=== PATIENT | female | born 1980 | race Caucasian/White ===

== ENCOUNTER 2016-11-01 11:29 | Emergency (ER) | payer OTHER ==
[~2016-11-01] VITALS: Ht 165.1 cm; Wt 86.2 kg
--- OUTSIDE RECORDS SUMMARY | ~2016-11-01 | XMS ---
Demographics + + + | Address | [address] [place] [address] | | | [place] [address] | + + + | Preferred Language | Unknown | + + + | Marital Status | Unknown | + + + | Religion Affiliation | Unknown | + + + | Race | Unknown | + + + | Ethnic Group | Unknown | + + + Author + + + | Author | [facility] | + + + | Organization | [facility] | + + + | Address | [address] | | | [place] [address] | + + + | Phone | | + + + Care Team Providers + + + + | Care Curator Horticultural Museum Name | Role | Phone | + + + + Unavailable | Unavailable | + + + + PROBLEMS +---------+ + + +--------+ + + | Type | Condition | ICD9-CM | [id number] | Onset | Condition | SNOMED | | | | Code | Code | Dates | Status | Code | +---------+ + + +--------+ + + | Problem | Cervical | N88.2 | | | Active | 04620555 | | | stenosis | | | | | | | | (uterine | | | | | | | | cervix) | | | | | | +---------+ + + +--------+ + + | Problem | Screening | Z12.4 | | | Active | 678489785 | | | for | | | | | | | | cervical | | | | | | | | cancer | | | | | | +---------+ + + +--------+ + + | Problem | Cervical | M48.02 | | | Active | 06273998 | | | spinal | | | | | | | | stenosis | | | | | | +---------+ + + +--------+ + + | Problem | Breast | N64.4 | | | Active | 59241161 | | | pain, left | | | | | | +---------+ + + +--------+ + + | Problem | Abdominal | 789.03 | | | Active | 767989836 | | | pain, | | | | | | | | right | | | | | | | | lower | | | | | | | | quadrant | | | | | | +---------+ + + +--------+ + + | Problem | Pelvic | 625.9 | | | Active | 76448154 | | | Pain | | | | | | +---------+ + + +--------+ + + | Problem | CERVICAL | 723.0 | | | Active | 96862255 | | | SPINAL | | | | | | | | STENOSIS | | | | | | +---------+ + + +--------+ + + | Problem | Routine | V72.31 | | | Active | [id number] | | | Media Reporter exam | | | | | 98[address] | | | with or | | | | | | | | without | | | | | | | | PAP | | | | | | +---------+ + + +--------+ + + | Problem | Myalgia | 729.1 | | | Active | 29261702 | +---------+ + + +--------+ + + | Problem | OPIOID | 305.52 | | | Active | 520106021 | | | ABUSE-EPIS | | | | | | | | ODIC | | | | | | +---------+ + + +--------+ + + | Problem | Chest | 786.59 | | | Active | 808673514 | | | discomfort | | | | | | +---------+ + + +--------+ + + | Problem | Rib pain | 786.50 | | | Active | 053865644 | +---------+ + + +--------+ + + | Problem | COPD | 496 | | | Active | 60276233 | | | (chronic | | | | | | | | obstructiv | | | | | | | | e | | | | | | | | pulmonary | | | | | | | | disease) | | | | | | +---------+ + + +--------+ + + | Problem | Chronic | | G89.4 | | Active | 888835879 | | | pain | | | | | | | | syndrome | | | | | | +---------+ + + +--------+ + + | Problem | Tobacco | F17.200 | | | Active | 421844577 | | | use | | | | | | | | disorder | | | | | | +---------+ + + +--------+ + + | Problem | Abscess of | 682.3 | | | Active | 16291581 | | | forearm | | | | | | +---------+ + + +--------+ + + | Problem | CLSC | 346.00 | | | Active | 8221770 | | | MIGRNE WO | | | | | | | | NTRC MGRN | | | | | | +---------+ + + +--------+ + + | Problem | Abdominal | 789.00 | | | Active | 80547967 | | | Pain | | | | | | +---------+ + + +--------+ + + | Problem | FB eye | T15.90XA | | | Active | | +---------+ + + +--------+ + + | Problem | Allergy, | 995.3 | | | Active | 884309454 | | | General | | | | | | +---------+ + + +--------+ + + | Problem | Screening | Z13.89 | | | Active | 475856264 | | | for | | | | | | | | alcoholism | | | | | | +---------+ + + +--------+ + + | Problem | ROM (right | H66.91 | | | Active | 65896021 | | | otitis | | | [...] | 722.0 | | | Active | 35736556 | | | DISC | | | [...] | 070.70 | | | Active | 11082415 | | | C without | | [...] | 782.0 | | | Active | 557504324 | | | e of skin | | | | | | | | sensation | | | | | | +---------+ + + +--------+ + + | Problem | Arm pain | 729.5 | | | Active | 09369627 | +---------+ + + +--------+ + + | Problem | JOINT | 719.41 | | | Active | 487643183 | | | PAIN-SHLDE | | | | | | | | R | | | | | | +---------+ + + +--------+ + + | Problem | BIPOLAR | 296.80 | | | Active | 78437431 | | | DISORDER | | | | | | | | NOS | | | | | | +---------+ + + +--------+ + + ALLERGIES + + + + +--------+ | Substance | Reaction | Event Type | Date | Status | + + + + +--------+ | Codeine | itchy | Drug Allergy | June, | Active | + + + + +--------+ | Amoxicillin | stomach upset | Drug Allergy | June, | Active | + + + + +--------+ | Tramadol HCl | seizures | Drug Allergy | June, | Active | + + + + +--------+ | Morphine | nausea | Drug Allergy | June, | Active | | Sulfate | | | | | + + + + +--------+ | Inapsine | vomiting | Drug Allergy | June, | Active | + + + + +--------+ | Darvocet A500 | stomach upset | Drug Allergy | June, | Active | + + + + +--------+ SOCIAL HISTORY No smoking Hx information available PLAN OF CARE + +---------+ | Activity | Details | + +---------+ +---+ | | +---+ + + + | Follow Up | 4 Weeks Reason:null | + + + VITAL SIGNS + + + + | Height | 65 in | 2016-07-16 | + + + + | Weight | 199 lbs | 2016-07-16 | + + + + | BMI | 33.11 kg/m2 | 2016-07-16 | + + + + | Temperature | 98.0 degrees Fahrenheit | 2016-07-16 | + + + + | Heart Rate | 85 /min | 2016-07-16 | + + + + | Blood pressure systolic | 126 mm Hg | 2016-07-16 | + + + + | Blood pressure diastolic | 77 mm Hg | 2016-07-16 | + + + + MEDICATIONS + + + + + + + +--------+ | Medicati | Instruct | Dosage | Frequenc | Start | End Date | Duration | Status | | on | ions | | y | Date | | | | + + + + + + + +--------+ | Wellbutr | Orally | 1 tablet | 24h | 31 June, | | 30 | Active | | in 75 mg | Once a | | | 2017 | | day(s) | | | | day | | [...] Transder | 1 patch | 24h | 31 June, | 30 Lior, | 30 | Active | | Nicotine | mal Once | | | 2017 | 2016 | day(s) | | | 21 | a day | | | | | | | | MG/24HR | | | | | | | | + + + + + + + +--------+ | RA | Mouth/Th | 1 | 6h | 31 May, | 30 Theo, | 15 | Active | | Nicotine | roat qid | lozenge | | 2016 | 2016 | day(s) | | | | | as | | | | | | | Polacril | | needed | | | | | | | ex 4 mg | | | | | | | | + + + + + + + +--------+ RESULTS No Results PROCEDURES + + + + + | Procedure | Date Ordered | Related Diagnosis | Body Site | + + + + + | Est Level IV | July 16, 2016 | | | | Extended | | | | + + + + + | DSCHRG MED/CURRENT | July 16, 2016 | | | | MED MERGE | | | | + + + + + IMMUNIZATIONS No Known Immunizations"
--- OUTSIDE RECORDS SUMMARY | ~2016-11-01 | XMS ---
Demographics + + + | Address | [address] [place] [address] | | | [place] [address] | + + + | Preferred Language | Unknown | + + + | Marital Status | Unknown | + + + | Caodaism Affiliation | Unknown | + + + | Race | Unknown | + + + | Ethnic Group | Unknown | + + + Author + + + | Author | [facility] | + + + | Organization | [facility] | + + + | Address | [address] | | | [place] [address] | + + + | Phone | | + + + Care Team Providers + + + + | Care Cream Separator Operator Name | Role | Phone | + + + + Unavailable | Unavailable | + + + + PROBLEMS +---------+ + + +--------+ + + | Type | Condition | ICD9-CM | [id number] | Onset | Condition | SNOMED | | | | Code | Code | Dates | Status | Code | +---------+ + + +--------+ + + | Problem | Cervical | N88.2 | | | Active | 17099817 | | | stenosis | | | | | | | | (uterine | | | | | | | | cervix) | | | | | | +---------+ + + +--------+ + + | Problem | Screening | Z12.4 | | | Active | 286530144 | | | for | | | | | | | | cervical | | | | | | | | cancer | | | | | | +---------+ + + +--------+ + + | Problem | Cervical | M48.02 | | | Active | 61271112 | | | spinal | | | | | | | | stenosis | | | | | | +---------+ + + +--------+ + + | Problem | Breast | N64.4 | | | Active | 97087054 | | | pain, left | | | | | | +---------+ + + +--------+ + + | Problem | Abdominal | 789.03 | | | Active | 784113954 | | | pain, | | | | | | | | right | | | | | | | | lower | | | | | | | | quadrant | | | | | | +---------+ + + +--------+ + + | Problem | Pelvic | 625.9 | | | Active | 65126775 | | | Pain | | | | | | +---------+ + + +--------+ + + | Problem | CERVICAL | 723.0 | | | Active | 49269571 | | | SPINAL | | | | | | | | STENOSIS | | | | | | +---------+ + + +--------+ + + | Problem | Routine | V72.31 | | | Active | 5557777858 | | | Valver exam | | | | | 87908 | | | with or | | | | | | | | without | | | | | | | | PAP | | | | | | +---------+ + + +--------+ + + | Problem | Myalgia | 729.1 | | | Active | 84997746 | +---------+ + + +--------+ + + | Problem | OPIOID | 305.52 | | | Active | 009953778 | | | ABUSE-EPIS | | | | | | | | ODIC | | | | | | +---------+ + + +--------+ + + | Problem | Chest | 786.59 | | | Active | 146015778 | | | discomfort | | | | | | +---------+ + + +--------+ + + | Problem | Rib pain | 786.50 | | | Active | 175733343 | +---------+ + + +--------+ + + | Problem | COPD | 496 | | | Active | 82710201 | | | (chronic | | | | | | | | obstructiv | | | | | | | | e | | | | | | | | pulmonary | | | | | | | | disease) | | | | | | +---------+ + + +--------+ + + | Problem | Chronic | | G89.4 | | Active | 980406013 | | | pain | | | | | | | | syndrome | | | | | | +---------+ + + +--------+ + + | Problem | Tobacco | F17.200 | | | Active | 628946483 | | | use | | | | | | | | disorder | | | | | | +---------+ + + +--------+ + + | Problem | Abscess of | 682.3 | | | Active | 38469075 | | | forearm | | | | | | +---------+ + + +--------+ + + | Problem | CLSC | 346.00 | | | Active | 5436103 | | | MIGRNE WO | | | | | | | | NTRC MGRN | | | | | | +---------+ + + +--------+ + + | Problem | Abdominal | 789.00 | | | Active | 54100166 | | | Pain | | | | | | +---------+ + + +--------+ + + | Problem | FB eye | T15.90XA | | | Active | | +---------+ + + +--------+ + + | Problem | Allergy, | 995.3 | | | Active | 255932785 | | | General | | | | | | +---------+ + + +--------+ + + | Problem | Screening | Z13.89 | | | Active | 709156320 | | | for | | | | | | | | alcoholism | | | | | | +---------+ + + +--------+ + + | Problem | ROM (right | H66.91 | | | Active | 78265793 | | | otitis | | | [...] | 722.0 | | | Active | 24947214 | | | DISC | | | [...] | 070.70 | | | Active | 76491224 | | | C without | | [...] | 782.0 | | | Active | 844778049 | | | e of skin | | | | | | | | sensation | | | | | | +---------+ + + +--------+ + + | Problem | Arm pain | 729.5 | | | Active | 44902126 | +---------+ + + +--------+ + + | Problem | JOINT | 719.41 | | | Active | 368977027 | | | PAIN-SHLDE | | | | | | | | R | | | | | | +---------+ + + +--------+ + + | Problem | BIPOLAR | 296.80 | | | Active | 40819920 | | | DISORDER | | | | | | | | NOS | | | | | | +---------+ + + +--------+ + + ALLERGIES Unknown Allergies SOCIAL HISTORY No smoking Hx information available PLAN OF CARE VITAL SIGNS MEDICATIONS Unknown Medications RESULTS No Results PROCEDURES No Known procedures IMMUNIZATIONS No Known Immunizations"
--- OUTSIDE RECORDS SUMMARY | ~2016-11-01 | XMS ---
Demographics + + + | Address | [address] [place] [address] | | | [place] [address] | + + + | Preferred Language | Unknown | + + + | Marital Status | Unknown | + + + | Holiness Affiliation | Unknown | + + + | Race | Unknown | + + + | Ethnic Group | Unknown | + + + Author + + + | Author | [facility] | + + + | Organization | [facility] | + + + | Address | [address] | | | [place] [address] | + + + | Phone | | + + + Care Team Providers + + + + | Care Inspector Multifocal Lens Name | Role | Phone | + + + + Unavailable | Unavailable | + + + + PROBLEMS +---------+ + + +--------+ + + | Type | Condition | ICD9-CM | [id number] | Onset | Condition | SNOMED | | | | Code | Code | Dates | Status | Code | +---------+ + + +--------+ + + | Problem | Cervical | N88.2 | | | Active | 42795159 | | | stenosis | | | | | | | | (uterine | | | | | | | | cervix) | | | | | | +---------+ + + +--------+ + + | Problem | Screening | Z12.4 | | | Active | 878388842 | | | for | | | | | | | | cervical | | | | | | | | cancer | | | | | | +---------+ + + +--------+ + + | Problem | Cervical | M48.02 | | | Active | 31616114 | | | spinal | | | | | | | | stenosis | | | | | | +---------+ + + +--------+ + + | Problem | Breast | N64.4 | | | Active | 32755352 | | | pain, left | | | | | | +---------+ + + +--------+ + + | Problem | Abdominal | 789.03 | | | Active | 069218584 | | | pain, | | | | | | | | right | | | | | | | | lower | | | | | | | | quadrant | | | | | | +---------+ + + +--------+ + + | Problem | Pelvic | 625.9 | | | Active | 65026233 | | | Pain | | | | | | +---------+ + + +--------+ + + | Problem | CERVICAL | 723.0 | | | Active | 99750315 | | | SPINAL | | | | | | | | STENOSIS | | | | | | +---------+ + + +--------+ + + | Problem | Routine | V72.31 | | | Active | 8570793122 | | | Pcts exam | | | | | 86719 | | | with or | | | | | | | | without | | | | | | | | PAP | | | | | | +---------+ + + +--------+ + + | Problem | Myalgia | 729.1 | | | Active | 46223405 | +---------+ + + +--------+ + + | Problem | OPIOID | 305.52 | | | Active | 640075730 | | | ABUSE-EPIS | | | | | | | | ODIC | | | | | | +---------+ + + +--------+ + + | Problem | Chest | 786.59 | | | Active | 476110393 | | | discomfort | | | | | | +---------+ + + +--------+ + + | Problem | Rib pain | 786.50 | | | Active | 013635363 | +---------+ + + +--------+ + + | Problem | COPD | 496 | | | Active | 62558302 | | | (chronic | | | | | | | | obstructiv | | | | | | | | e | | | | | | | | pulmonary | | | | | | | | disease) | | | | | | +---------+ + + +--------+ + + | Problem | Chronic | | G89.4 | | Active | 336584667 | | | pain | | | | | | | | syndrome | | | | | | +---------+ + + +--------+ + + | Problem | Tobacco | F17.200 | | | Active | 017331434 | | | use | | | | | | | | disorder | | | | | | +---------+ + + +--------+ + + | Problem | Abscess of | 682.3 | | | Active | 30503493 | | | forearm | | | | | | +---------+ + + +--------+ + + | Problem | CLSC | 346.00 | | | Active | 4626273 | | | MIGRNE WO | | | | | | | | NTRC MGRN | | | | | | +---------+ + + +--------+ + + | Problem | Abdominal | 789.00 | | | Active | 52131130 | | | Pain | | | | | | +---------+ + + +--------+ + + | Problem | FB eye | T15.90XA | | | Active | | +---------+ + + +--------+ + + | Problem | Allergy, | 995.3 | | | Active | 065251707 | | | General | | | | | | +---------+ + + +--------+ + + | Problem | Screening | Z13.89 | | | Active | 594124130 | | | for | | | | | | | | alcoholism | | | | | | +---------+ + + +--------+ + + | Problem | ROM (right | H66.91 | | | Active | 37282953 | | | otitis | | | [...] | 722.0 | | | Active | 90303843 | | | DISC | | | [...] | 070.70 | | | Active | 16059615 | | | C without | | [...] | 782.0 | | | Active | 090237973 | | | e of skin | | | | | | | | sensation | | | | | | +---------+ + + +--------+ + + | Problem | Arm pain | 729.5 | | | Active | 50662083 | +---------+ + + +--------+ + + | Problem | JOINT | 719.41 | | | Active | 667948777 | | | PAIN-SHLDE | | | | | | | | R | | | | | | +---------+ + + +--------+ + + | Problem | BIPOLAR | 296.80 | | | Active | 34541369 | | | DISORDER | | | | | | | | NOS | | | | | | +---------+ + + +--------+ + + ALLERGIES Unknown Allergies SOCIAL HISTORY No smoking Hx information available PLAN OF CARE + +---------+ | Activity | Details | + +---------+ +---+ | | +---+ + + + | Pending Test | Mammogram: Diagnostic (Bilateral) | + + + VITAL SIGNS MEDICATIONS Unknown Medications RESULTS No Results PROCEDURES No Known procedures IMMUNIZATIONS No Known Immunizations"
[~2016-11-01 11:29] MED LIST: ABILIFY10 MG PO; ACETAMINOPHEN-1 EAC1 PO; AZITHROMYCIN500 MG PO; BACTRIM DS TAB1 EACH PO; BLACK COHOSH40 M1 PO; CEPHALEXIN500 MG; CEPHALEXIN500 MG PO; CIPRO500 MG PO; CLONIDINE HCL0.1 MG PO; CORTISPORIN EAR10 ML AD; DOXYCYCLINE HY100 MG PO; ESTRADIOL1 MG PO; FLEXERIL10 MG PO; FLONASE2 SPRAY; FLUOXETINE HCL20 MG PO; GABAPENTIN100 MG PO; GABAPENTIN300 MG PO; HYDROCODON-ACE1 EA10; HYDROCODON-ACE1 EA11 PO; HYDROCODON-ACE1 EAC8 PO; KEFLEX500 MG PO; MEGA RED KRILL OIL; MSM500 MG PO; NAPROSYN500 MG PO; NAPROXEN500 MG PO; NORCO 5-325 TA1 EACH PO; NORCO 7.5-3251 EACH PO; SAPHRIS5 MG; SEPTRA DS TABL1 EACH PO; ST. JOHN'S WOR300 MG PO; SUDAFED30 MG; THERALITH XR T1 EACH PO; TOPAMAX100 MG; TUMERIC; VICODIN 5-3001 EACH PO; [UNRECOGNIZED DRUG - OTHER]
== END 2016-11-01 11:47 | disposition home or self-care (01) ==
LOC: ED 11:29
DX: Z00.8 Encounter for other general examination (principal)

== ENCOUNTER 2017-01-23 08:13 | Emergency (ER) | payer OTHER ==
[~2017-01-23] VITALS: Ht 165.1 cm; Wt 83.5 kg
[2017-01-23] MEDS ORDERED: SUBOXONE 8 MG-1 EAC1 SL (08:22)
[2017-01-23] MEDS ORDERED: CYMBALTA20 MG PO (08:23)
--- OUTSIDE RECORDS SUMMARY | 2017-01-23 08:57 | XMS ---
Demographics + + + | Address | [address] [place] [address] | | | [place] [address] | + + + | Preferred Language | Unknown | + + + | Marital Status | Unknown | + + + | Presybeterian Affiliation | Unknown | + + + | Race | Unknown | + + + | Ethnic Group | Unknown | + + + Author + + + | Author | [facility] | + + + | Organization | [facility] | + + + | Address | [address] | | | [place] [address] | + + + | Phone | | + + + Care Team Providers + + + + | Care Surgical Technician Name | Role | Phone | + + + + Unavailable | Unavailable | + + + + PROBLEMS +---------+ + + +--------+ + + | Type | Condition | ICD9-CM | [id number] | Onset | Condition | SNOMED | | | | Code | Code | Dates | Status | Code | +---------+ + + +--------+ + + | Problem | Cervical | N88.2 | | | Active | 98893953 | | | stenosis | | | | | | | | (uterine | | | | | | | | cervix) | | | | | | +---------+ + + +--------+ + + | Problem | Screening | Z12.4 | | | Active | 071968018 | | | for | | | | | | | | cervical | | | | | | | | cancer | | | | | | +---------+ + + +--------+ + + | Problem | Cervical | M48.02 | | | Active | 68311378 | | | spinal | | | | | | | | stenosis | | | | | | +---------+ + + +--------+ + + | Problem | Breast | N64.4 | | | Active | 95668765 | | | pain, left | | | | | | +---------+ + + +--------+ + + | Problem | Abdominal | 789.03 | | | Active | 732070814 | | | pain, | | | | | | | | right | | | | | | | | lower | | | | | | | | quadrant | | | | | | +---------+ + + +--------+ + + | Problem | Pelvic | 625.9 | | | Active | 56190393 | | | Pain | | | | | | +---------+ + + +--------+ + + | Problem | CERVICAL | 723.0 | | | Active | 65616347 | | | SPINAL | | | | | | | | STENOSIS | | | | | | +---------+ + + +--------+ + + | Problem | Routine | V72.31 | | | Active | 5554867788 | | | Electric Truck Operator exam | | | | | 74979 | | | with or | | | | | | | | without | | | | | | | | PAP | | | | | | +---------+ + + +--------+ + + | Problem | Myalgia | 729.1 | | | Active | 01579460 | +---------+ + + +--------+ + + | Problem | OPIOID | 305.52 | | | Active | 452979004 | | | ABUSE-EPIS | | | | | | | | ODIC | | | | | | +---------+ + + +--------+ + + | Problem | Chest | 786.59 | | | Active | 930371626 | | | discomfort | | | | | | +---------+ + + +--------+ + + | Problem | Rib pain | 786.50 | | | Active | 458656179 | +---------+ + + +--------+ + + | Problem | COPD | 496 | | | Active | 82623861 | | | (chronic | | | | | | | | obstructiv | | | | | | | | e | | | | | | | | pulmonary | | | | | | | | disease) | | | | | | +---------+ + + +--------+ + + | Problem | Chronic | | G89.4 | | Active | 790198675 | | | pain | | | | | | | | syndrome | | | | | | +---------+ + + +--------+ + + | Problem | Tobacco | F17.200 | | | Active | 803505305 | | | use | | | | | | | | disorder | | | | | | +---------+ + + +--------+ + + | Problem | Abscess of | 682.3 | | | Active | 34077164 | | | forearm | | | | | | +---------+ + + +--------+ + + | Problem | CLSC | 346.00 | | | Active | 2076724 | | | MIGRNE WO | | | | | | | | NTRC MGRN | | | | | | +---------+ + + +--------+ + + | Problem | Abdominal | 789.00 | | | Active | 70731522 | | | Pain | | | | | | +---------+ + + +--------+ + + | Problem | FB eye | T15.90XA | | | Active | | +---------+ + + +--------+ + + | Problem | Allergy, | 995.3 | | | Active | 740004535 | | | General | | | | | | +---------+ + + +--------+ + + | Problem | Screening | Z13.89 | | | Active | 209753399 | | | for | | | | | | | | alcoholism | | | | | | +---------+ + + +--------+ + + | Problem | ROM (right | H66.91 | | | Active | 90136605 | | | otitis | | | | | | | | media) | | | | | | +---------+ + + +--------+ + + | Problem | Drug | 305.91 | | | Active | | | | abuse, | | | | | | | | other, | | | | | | | | mixed or | | | | | | | | unspecifie | | | | | | | | d, | | | | | | | | continuous | | | | | | +---------+ + + +--------+ + + | Problem | CERVICAL | 722.0 | | | Active | 14219661 | | | DISC | | | | | | | | DISPLACMNT | | | | | | +---------+ + + +--------+ + + | Problem | JOINT | V43.61 | | | Active | | | | REPLACED | | | | | | | | SHOULDER | | | | | | +---------+ + + +--------+ + + | Problem | Hepatitis | 070.70 | | | Active | 48796471 | | | C without | | | | | | | | hepatic | | | | | | | | coma, not | | | | | | | | otherwise | | | | | | | | specified | | | | | | +---------+ + + +--------+ + + | Problem | Disturbanc | 782.0 | | | Active | 494813562 | | | e of skin | | | | | | | | sensation | | | | | | +---------+ + + +--------+ + + | Problem | Arm pain | 729.5 | | | Active | 17572313 | +---------+ + + +--------+ + + | Problem | JOINT | 719.41 | | | Active | 650081627 | | | PAIN-SHLDE | | | | | | | | R | | | | | | +---------+ + + +--------+ + + | Problem | BIPOLAR | 296.80 | | | Active | 81780293 | | | DISORDER | | | | | | | | NOS | | | | | | +---------+ + + +--------+ + + ALLERGIES No Information SOCIAL HISTORY Never Assessed PLAN OF CARE VITAL SIGNS MEDICATIONS Unknown Medications RESULTS No Results PROCEDURES No Known procedures IMMUNIZATIONS No Known Immunizations MEDICAL (GENERAL) HISTORY + + + + | Type | Description | Date | + + + + | Medical History | Endometriosis | | + + + + | Medical History | Bipolar | | + + + + | Medical History | epilepsy - stopped meds | | | | last month, was on LAMICTAL | | | | and was changed to | | | | Neurontin. | | + + + + | Medical History | drug addiction (narcotics) | | + + + + | Medical History | HEP C: last test with | | | | Ilda she did not have | | | | this. Never treated. | | + + + + | Medical History | Crohns disease | | + + + + | Medical History | patient history for chronic | | | | management chronic pain is | | | | as follows she is a long | | | | history of orthopedic and | | | | neurosurgical problems | | | | related to cervical spine | | | | stenosis she took tramadol | | | | and then developed a | | | | seizure and he ended up | | | | with a left total shoulder | | | | replacement done some | | | | problems in the past with | | | | opiate abuse and she has | | | | been on ongoing low doses | | | | of Maben 5 325 q.6 to 8 | | | | hours we're working with a | | | | pain management counseling | | | | in reducing her narcotic | | | | slowly his shoulder surgery | | | | he has been only | | | | reasonably successful and | | | | she has a significant | | | | amount of pain in the | | | | shoulder there is some | | | | neuropathy related to the | | | | cervical stenosis but not | | | | major and we're going to | | | | work at continuing to | | | | reduce the narcotics over | | | | time. Discussion with | | | | Ilda on 04/18/15, we will | | | | continue trying to taper | | | | her off the opiate | | | | analgesics over a | | | | three-month period. We did | | | | review the results of the | | | | MRI done on 04/17/15 (MCT) | | + + + + | Medical History | 04/17/15: MRI of | | | | spine/cervical spine, | | | | impression: No significant | | | | change in the mild right | | | | C4-C5 and left C5-C6 neural | | | | foraminal narrowing. | | + + + + | Medical History | Zafar 1993 | | + + + + | Medical History | Appendectomy: Elen White | | + + + + | Medical History | Radhasariel 2008 ADELINA GOMEZO | | + + + + | Surgical History | laparoscopy x6 | [id number] | + + + + | Surgical History | gall bladder | 2005 | + + + + | Surgical History | appendectomy | 1991 | + + + + | Surgical History | Abdominal hysterectomy, | 2008 | | | with BSO | | + + + + | Surgical History | shoulder surgery x2 | [phone] | + + + + | Surgical History | shoulder replacement | 2010 | + + + + | Surgical History | left breast lump removed | 2012 | | | (abscess) | | + + + + | Surgical History | cyst removed from right ear | 2016 | + + + + | Hospitalization History | surgery | | + + + + | Hospitalization History | childbirth x 2 | | + + + +"
--- OUTSIDE RECORDS SUMMARY | 2017-01-23 08:57 | XMS ---
Demographics + + + | Address | [address] [place] [address] | | | [place] [address] | + + + | Preferred Language | Unknown | + + + | Marital Status | Unknown | + + + | Voodoo Affiliation | Unknown | + + + | Race | Unknown | + + + | Ethnic Group | Unknown | + + + Author + + + | Author | [facility] | + + + | Organization | [facility] | + + + | Address | [address] | | | [place] [address] | + + + | Phone | | + + + Care Team Providers + + + + | Care Foam Cutting Supervisor Name | Role | Phone | + + + + Unavailable | Unavailable | + + + + PROBLEMS +---------+ + + +--------+ + + | Type | Condition | ICD9-CM | [id number] | Onset | Condition | SNOMED | | | | Code | Code | Dates | Status | Code | +---------+ + + +--------+ + + | Problem | Cervical | N88.2 | | | Active | [id number] | | | stenosis | | | | | | | | (uterine | | | | | | | | cervix) | | | | | | +---------+ + + +--------+ + + | Problem | Screening | Z12.4 | | | Active | 281319984 | | | for | | | | | | | | cervical | | | | | | | | cancer | | | | | | +---------+ + + +--------+ + + | Problem | Cervical | M48.02 | | | Active | 96212997 | | | spinal | | | | | | | | stenosis | | | | | | +---------+ + + +--------+ + + | Problem | Breast | N64.4 | | | Active | 40390994 | | | pain, left | | | | | | +---------+ + + +--------+ + + | Problem | Abdominal | 789.03 | | | Active | 886148055 | | | pain, | | | | | | | | right | | | | | | | | lower | | | | | | | | quadrant | | | | | | +---------+ + + +--------+ + + | Problem | Pelvic | 625.9 | | | Active | 34305376 | | | Pain | | | | | | +---------+ + + +--------+ + + | Problem | CERVICAL | 723.0 | | | Active | 26698680 | | | SPINAL | | | | | | | | STENOSIS | | | | | | +---------+ + + +--------+ + + | Problem | Routine | V72.31 | | | Active | 7964694390 | | | 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 | | | | | 01406 | | | with or | | | | | | | | without | | | | | | | | PAP | | | | | | +---------+ + + +--------+ + + | Problem | Myalgia | 729.1 | | | Active | 64671130 | +---------+ + + +--------+ + + | Problem | OPIOID | 305.52 | | | Active | 192287705 | | | ABUSE-EPIS | | | | | | | | ODIC | | | | | | +---------+ + + +--------+ + + | Problem | Chest | 786.59 | | | Active | 974817063 | | | discomfort | | | | | | +---------+ + + +--------+ + + | Problem | Rib pain | 786.50 | | | Active | 718526740 | +---------+ + + +--------+ + + | Problem | COPD | 496 | | | Active | 03187424 | | | (chronic | | | | | | | | obstructiv | | | | | | | | e | | | | | | | | pulmonary | | | | | | | | disease) | | | | | | +---------+ + + +--------+ + + | Problem | Chronic | | G89.4 | | Active | 320052131 | | | pain | | | | | | | | syndrome | | | | | | +---------+ + + +--------+ + + | Problem | Tobacco | F17.200 | | | Active | 963590154 | | | use | | | | | | | | disorder | | | | | | +---------+ + + +--------+ + + | Problem | Abscess of | 682.3 | | | Active | 77408587 | | | forearm | | | | | | +---------+ + + +--------+ + + | Problem | CLSC | 346.00 | | | Active | 1479275 | | | MIGRNE WO | | | | | | | | NTRC MGRN | | | | | | +---------+ + + +--------+ + + | Problem | Abdominal | 789.00 | | | Active | 90409835 | | | Pain | | | | | | +---------+ + + +--------+ + + | Problem | FB eye | T15.90XA | | | Active | | +---------+ + + +--------+ + + | Problem | Allergy, | 995.3 | | | Active | 063203114 | | | General | | | | | | +---------+ + + +--------+ + + | Problem | Screening | Z13.89 | | | Active | 042158070 | | | for | | | | | | | | alcoholism | | | | | | +---------+ + + +--------+ + + | Problem | ROM (right | H66.91 | | | Active | 84620307 | | | otitis | | | [...] | 722.0 | | | Active | 00256340 | | | DISC | | | [...] | 070.70 | | | Active | 86439745 | | | C without | | [...] | 782.0 | | | Active | 580519125 | | | e of skin | | | | | | | | sensation | | | | | | +---------+ + + +--------+ + + | Problem | Arm pain | 729.5 | | | Active | 61083338 | +---------+ + + +--------+ + + | Problem | JOINT | 719.41 | | | Active | 995022288 | | | PAIN-SHLDE | | | | | | | | R | | | | | | +---------+ + + +--------+ + + | Problem | BIPOLAR | 296.80 | | | Active | 70012820 | | | DISORDER | | | [...] low doses | | | | of [place] 5 325 q.6 to 8 | | [...] | Surgical History | laparoscopy x6 | 4141-9258 | + + + + | Surgical History | gall bladder | 2005 | + + + + | Surgical History | appendectomy | 1991 | + + + + | Surgical History | Abdominal hysterectomy, | 2008 | | | with BSO | | + + + + | Surgical History | shoulder surgery x2 | 8149-2691 | + + + + | Surgical [...]
--- OUTSIDE RECORDS SUMMARY | 2017-01-23 09:23 | XMS ---
Demographics + + + | Address | [address] [place] [address] | | | [place] [address] | + + + | Preferred Language | Unknown | + + + | Marital Status | Unknown | + + + | Muslim Affiliation | Unknown | + + + | Race | Unknown | + + + | Ethnic Group | Unknown | + + + Author + + + | Author | [facility] | + + + | Organization | [facility] | + + + | Address | [address] | | | [place] [address] | + + + | Phone | | + + + Care Team Providers + + + + | Care Practice Support Specialist Name | Role | Phone | + + + + Unavailable | Unavailable | + + + + PROBLEMS +---------+ + + +--------+ + + | Type | Condition | ICD9-CM | [id number] | Onset | Condition | SNOMED | | | | Code | Code | Dates | Status | Code | +---------+ + + +--------+ + + | Problem | Cervical | N88.2 | | | Active | 07096844 | | | stenosis | | | | | | | | (uterine | | | | | | | | cervix) | | | | | | +---------+ + + +--------+ + + | Problem | Screening | Z12.4 | | | Active | 308235254 | | | for | | | | | | | | cervical | | | | | | | | cancer | | | | | | +---------+ + + +--------+ + + | Problem | Cervical | M48.02 | | | Active | 66666132 | | | spinal | | | | | | | | stenosis | | | | | | +---------+ + + +--------+ + + | Problem | Breast | N64.4 | | | Active | 14941168 | | | pain, left | | | | | | +---------+ + + +--------+ + + | Problem | Abdominal | 789.03 | | | Active | 195588946 | | | pain, | | | | | | | | right | | | | | | | | lower | | | | | | | | quadrant | | | | | | +---------+ + + +--------+ + + | Problem | Pelvic | 625.9 | | | Active | 92526984 | | | Pain | | | | | | +---------+ + + +--------+ + + | Problem | CERVICAL | 723.0 | | | Active | 35338215 | | | SPINAL | | | | | | | | STENOSIS | | | | | | +---------+ + + +--------+ + + | Problem | Routine | V72.31 | | | Active | 2928103962 | | | 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 | | | | | 09947 | | | with or | | | | | | | | without | | | | | | | | PAP | | | | | | +---------+ + + +--------+ + + | Problem | Myalgia | 729.1 | | | Active | 69761856 | +---------+ + + +--------+ + + | Problem | OPIOID | 305.52 | | | Active | 757506556 | | | ABUSE-EPIS | | | | | | | | ODIC | | | | | | +---------+ + + +--------+ + + | Problem | Chest | 786.59 | | | Active | 177232558 | | | discomfort | | | | | | +---------+ + + +--------+ + + | Problem | Rib pain | 786.50 | | | Active | 368883574 | +---------+ + + +--------+ + + | Problem | COPD | 496 | | | Active | 63865008 | | | (chronic | | | | | | | | obstructiv | | | | | | | | e | | | | | | | | pulmonary | | | | | | | | disease) | | | | | | +---------+ + + +--------+ + + | Problem | Chronic | | G89.4 | | Active | 584910529 | | | pain | | | | | | | | syndrome | | | | | | +---------+ + + +--------+ + + | Problem | Tobacco | F17.200 | | | Active | 130834228 | | | use | | | | | | | | disorder | | | | | | +---------+ + + +--------+ + + | Problem | Abscess of | 682.3 | | | Active | 24921204 | | | forearm | | | | | | +---------+ + + +--------+ + + | Problem | CLSC | 346.00 | | | Active | 2570356 | | | MIGRNE WO | | | | | | | | NTRC MGRN | | | | | | +---------+ + + +--------+ + + | Problem | Abdominal | 789.00 | | | Active | 86292636 | | | Pain | | | | | | +---------+ + + +--------+ + + | Problem | FB eye | T15.90XA | | | Active | | +---------+ + + +--------+ + + | Problem | Allergy, | 995.3 | | | Active | 859021800 | | | General | | | | | | +---------+ + + +--------+ + + | Problem | Screening | Z13.89 | | | Active | 430234707 | | | for | | | | | | | | alcoholism | | | | | | +---------+ + + +--------+ + + | Problem | ROM (right | H66.91 | | | Active | 12789757 | | | otitis | | | [...] | 722.0 | | | Active | 09527710 | | | DISC | | | [...] | 070.70 | | | Active | 06965702 | | | C without | | [...] | 782.0 | | | Active | 436680366 | | | e of skin | | | | | | | | sensation | | | | | | +---------+ + + +--------+ + + | Problem | Arm pain | 729.5 | | | Active | 99024717 | +---------+ + + +--------+ + + | Problem | JOINT | 719.41 | | | Active | 868444058 | | | PAIN-SHLDE | | | | | | | | R | | | | | | +---------+ + + +--------+ + + | Problem | BIPOLAR | 296.80 | | | Active | 18702207 | | | DISORDER | | | | | | | | NOS | | | | | | +---------+ + + +--------+ + + ALLERGIES + + + + +--------+ | Substance | Reaction | Event Type | Date | Status | + + + + +--------+ | Codeine | itchy | Drug Allergy | Oct, | Active | + + + + +--------+ | Amoxicillin | stomach upset | Drug Allergy | Oct, | Active | + + + + +--------+ | Tramadol HCl | seizures | Drug Allergy | Oct, | Active | + + + + +--------+ | Morphine | nausea | Drug Allergy | Oct, | Active | | Sulfate | | | | | + + + + +--------+ | Inapsine | vomiting | Drug Allergy | Oct, | Active | + + + + +--------+ | Darvocet A500 | stomach upset | Drug Allergy | Oct, | Active | + + + + +--------+ SOCIAL HISTORY No smoking Hx information available PLAN OF CARE + +---------+ | Activity | Details | + +---------+ +---+ | | +---+ + + + | Follow Up | prn Reason:null | + + + VITAL SIGNS + + + + | Height | 65 in | 2016-11-01 | + + + + | Weight | 190 lbs | 2016-11-01 | + + + + | BMI | 31.61 kg/m2 | 2016-11-01 | + + + + | Temperature | 98.1 degrees Fahrenheit | 2016-11-01 | + + + + | Heart Rate | 93 /min | 2016-11-01 | + + + + | Blood pressure systolic | 120 mm Hg | 2016-11-01 | + + + + | Blood pressure diastolic | 79 mm Hg | 2016-11-01 | + + + + MEDICATIONS + + + + + + + +--------+ | Medicati | Instruct | Dosage | Frequenc | Start | End Date | Duration | Status | | on | ions | | y | Date | | | | + + + + + + + +--------+ | Tylenol | Orally | 2 | 6h | | | | Active | | 325 MG | every 6 | tablets | | | | | | | | hrs | as | | | | | | | | | needed | | | | | | + + + + + + + +--------+ | Ketorola | Intramus | 2 ml | | 16 Sep, | 16 Sep, | | Active | | c | cular | | | 2017 | 2017 | | | | Trometha | NOW | | | | | | | | mine 60 | | | | | | | | | MG/2ML | | | | | | | | + + + + + + + +--------+ | Estrace | Orally | 1 tablet | 24h | | | 30 | Active | | 1 MG | Once a | | | | | | | | | day | | | | | | | + + + + + + + +--------+ | Ibuprofe | Orally | 1 tablet | 6h | | | | Active | | n 200 MG | every 6 | as | | | | | | | | hrs | needed | | | | | | + + + + + + + +--------+ | Cymbalta | Orally | 1 | 24h | 10 Mar, | | 30 days | Active | | 30 mg | daily | capsule | | 2015 | | | | + + + + + + + +--------+ | SM | Transder | 1 patch | 24h | 14 Oct, | 13 Dec, | 30 | Active | | Nicotine | mal Once | | | 2016 | 2016 | day(s) | | | 21 | a day | | | | | | | | MG/24HR | | | | | | | | + + + + + + + +--------+ RESULTS No Results PROCEDURES + + + + + | Procedure | Date Ordered | Related Diagnosis | Body Site | + + + + + | INJ KETOROLAC | Nov 01, 2016 | | | | TROMETHAMINE 15 MG | | | | + + + + + | INJECTION | Nov 01, 2016 | | | | ADMINISTRATION | | | | + + + + + | DSCHRG MED/CURRENT | Nov 01, 2016 | | | | MED MERGE | | | | + + + + + | Est Level III | Nov 01, 2016 | | | | Intermediate | | | | + + + + + | DOC MEDS VERIFIED | Nov 01, 2016 | | | | W/PT OR RE | | | | + + + + + IMMUNIZATIONS + + + + + | Vaccine | Route | Administration Date | Status | + + + + + | Ketorolac 60mg/2ml | IM Intramuscular | Nov 01, 2016 | Administered | + + + + +"
--- OUTSIDE RECORDS SUMMARY | 2017-01-23 09:23 | XMS ---
Demographics + + + | Address | [address] [place] [address] | | | [place] [address] | + + + | Preferred Language | Unknown | + + + | Marital Status | Unknown | + + + | Faith Affiliation | Unknown | + + + | Race | Unknown | + + + | Ethnic Group | Unknown | + + + Author + + + | Author | [facility] | + + + | Organization | [facility] | + + + | Address | [address] | | | [place] [address] | + + + | Phone | | + + + Care Team Providers + + + + | Care Room Worker Name | Role | Phone | + + + + Unavailable | Unavailable | + + + + PROBLEMS +---------+ + + +--------+ + + | Type | Condition | ICD9-CM | [id number] | Onset | Condition | SNOMED | | | | Code | Code | Dates | Status | Code | +---------+ + + +--------+ + + | Problem | Cervical | N88.2 | | | Active | 31259297 | | | stenosis | | | | | | | | (uterine | | | | | | | | cervix) | | | | | | +---------+ + + +--------+ + + | Problem | Screening | Z12.4 | | | Active | 613582331 | | | for | | | | | | | | cervical | | | | | | | | cancer | | | | | | +---------+ + + +--------+ + + | Problem | Cervical | M48.02 | | | Active | 77296474 | | | spinal | | | | | | | | stenosis | | | | | | +---------+ + + +--------+ + + | Problem | Breast | N64.4 | | | Active | 94534695 | | | pain, left | | | | | | +---------+ + + +--------+ + + | Problem | Abdominal | 789.03 | | | Active | 139943110 | | | pain, | | | | | | | | right | | | | | | | | lower | | | | | | | | quadrant | | | | | | +---------+ + + +--------+ + + | Problem | Pelvic | 625.9 | | | Active | 68697889 | | | Pain | | | | | | +---------+ + + +--------+ + + | Problem | CERVICAL | 723.0 | | | Active | 99566118 | | | SPINAL | | | | | | | | STENOSIS | | | | | | +---------+ + + +--------+ + + | Problem | Routine | V72.31 | | | Active | 0451527219 | | | 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 | | | | | 280[address] | | | with or | | | | | | | | without | | | | | | | | PAP | | | | | | +---------+ + + +--------+ + + | Problem | Myalgia | 729.1 | | | Active | 37624675 | +---------+ + + +--------+ + + | Problem | OPIOID | 305.52 | | | Active | 524253556 | | | ABUSE-EPIS | | | | | | | | ODIC | | | | | | +---------+ + + +--------+ + + | Problem | Chest | 786.59 | | | Active | 988190593 | | | discomfort | | | | | | +---------+ + + +--------+ + + | Problem | Rib pain | 786.50 | | | Active | 509182039 | +---------+ + + +--------+ + + | Problem | COPD | 496 | | | Active | 08307718 | | | (chronic | | | | | | | | obstructiv | | | | | | | | e | | | | | | | | pulmonary | | | | | | | | disease) | | | | | | +---------+ + + +--------+ + + | Problem | Chronic | | G89.4 | | Active | 045264208 | | | pain | | | | | | | | syndrome | | | | | | +---------+ + + +--------+ + + | Problem | Tobacco | F17.200 | | | Active | 368170443 | | | use | | | | | | | | disorder | | | | | | +---------+ + + +--------+ + + | Problem | Abscess of | 682.3 | | | Active | 62525749 | | | forearm | | | | | | +---------+ + + +--------+ + + | Problem | CLSC | 346.00 | | | Active | 2979590 | | | MIGRNE WO | | | | | | | | NTRC MGRN | | | | | | +---------+ + + +--------+ + + | Problem | Abdominal | 789.00 | | | Active | 11382295 | | | Pain | | | | | | +---------+ + + +--------+ + + | Problem | FB eye | T15.90XA | | | Active | | +---------+ + + +--------+ + + | Problem | Allergy, | 995.3 | | | Active | 235584942 | | | General | | | | | | +---------+ + + +--------+ + + | Problem | Screening | Z13.89 | | | Active | 517617147 | | | for | | | | | | | | alcoholism | | | | | | +---------+ + + +--------+ + + | Problem | ROM (right | H66.91 | | | Active | 98616182 | | | otitis | | | [...] | 722.0 | | | Active | 87463448 | | | DISC | | | [...] | 070.70 | | | Active | 54877248 | | | C without | | [...] | 782.0 | | | Active | 611641788 | | | e of skin | | | | | | | | sensation | | | | | | +---------+ + + +--------+ + + | Problem | Arm pain | 729.5 | | | Active | 09480156 | +---------+ + + +--------+ + + | Problem | JOINT | 719.41 | | | Active | 408050919 | | | PAIN-SHLDE | | | | | | | | R | | | | | | +---------+ + + +--------+ + + | Problem | BIPOLAR | 296.80 | | | Active | 16395820 | | | DISORDER | | | [...] low doses | | | | of [place] 5 325 q.6 to 8 | | [...] + + + | Medical History | Mikel1993 | | + + + + | Medical History | Appendectomy: Elen White | | + + + + | Medical History | Radhasnmjanet 2008 ADELINA GOMEZO | | + + + + | Surgical History | laparoscopy x6 | 7870-0278 | + + + + | Surgical History | gall bladder | 2005 | + + + + | Surgical History | appendectomy | 1991 | + + + + | Surgical History | Abdominal hysterectomy, | 2008 | | | with BSO | | + + + + | Surgical History | shoulder surgery x2 | 5106-4823 | + + + + | Surgical [...]
--- OUTSIDE RECORDS SUMMARY | 2017-01-23 09:23 | XMS ---
Demographics + + + | Address | [address] [place] [address] | | | [place] [address] | + + + | Preferred Language | Unknown | + + + | Marital Status | Unknown | + + + | Christian Affiliation | Unknown | + + + | Race | Unknown | + + + | Ethnic Group | Unknown | + + + Author + + + | Author | [facility] | + + + | Organization | [facility] | + + + | Address | [address] | | | [place] [address] | + + + | Phone | | + + + Care Team Providers + + + + | Care Ship'S [place] Name | Role | Phone | + + + + Unavailable | Unavailable | + + + + PROBLEMS +---------+ + + +--------+ + + | Type | Condition | ICD9-CM | GGX61-XR | Onset | Condition | SNOMED | | | | Code | Code | Dates | Status | Code | +---------+ + + +--------+ + + | Problem | Cervical | N88.2 | | | Active | 85200730 | | | stenosis | | | | | | | | (uterine | | | | | | | | cervix) | | | | | | +---------+ + + +--------+ + + | Problem | Screening | Z12.4 | | | Active | 116219637 | | | for | | | | | | | | cervical | | | | | | | | cancer | | | | | | +---------+ + + +--------+ + + | Problem | Cervical | M48.02 | | | Active | 54200282 | | | spinal | | | | | | | | stenosis | | | | | | +---------+ + + +--------+ + + | Problem | Breast | N64.4 | | | Active | 58830432 | | | pain, left | | | | | | +---------+ + + +--------+ + + | Problem | Abdominal | 789.03 | | | Active | 412239589 | | | pain, | | | | | | | | right | | | | | | | | lower | | | | | | | | quadrant | | | | | | +---------+ + + +--------+ + + | Problem | Pelvic | 625.9 | | | Active | 58548842 | | | Pain | | | | | | +---------+ + + +--------+ + + | Problem | CERVICAL | 723.0 | | | Active | 11470908 | | | SPINAL | | | | | | | | STENOSIS | | | | | | +---------+ + + +--------+ + + | Problem | Routine | V72.31 | | | Active | 9662421855 | | | 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 | | | | | 25892 | | | with or | | | | | | | | without | | | | | | | | PAP | | | | | | +---------+ + + +--------+ + + | Problem | Myalgia | 729.1 | | | Active | 13689627 | +---------+ + + +--------+ + + | Problem | OPIOID | 305.52 | | | Active | 431618178 | | | ABUSE-EPIS | | | | | | | | ODIC | | | | | | +---------+ + + +--------+ + + | Problem | Chest | 786.59 | | | Active | 562118540 | | | discomfort | | | | | | +---------+ + + +--------+ + + | Problem | Rib pain | 786.50 | | | Active | 319264240 | +---------+ + + +--------+ + + | Problem | COPD | 496 | | | Active | 13651196 | | | (chronic | | | | | | | | obstructiv | | | | | | | | e | | | | | | | | pulmonary | | | | | | | | disease) | | | | | | +---------+ + + +--------+ + + | Problem | Chronic | | G89.4 | | Active | 039295488 | | | pain | | | | | | | | syndrome | | | | | | +---------+ + + +--------+ + + | Problem | Tobacco | F17.200 | | | Active | 623151102 | | | use | | | | | | | | disorder | | | | | | +---------+ + + +--------+ + + | Problem | Abscess of | 682.3 | | | Active | 34462290 | | | forearm | | | | | | +---------+ + + +--------+ + + | Problem | CLSC | 346.00 | | | Active | 7504233 | | | MIGRNE WO | | | | | | | | NTRC MGRN | | | | | | +---------+ + + +--------+ + + | Problem | Abdominal | 789.00 | | | Active | 87281248 | | | Pain | | | | | | +---------+ + + +--------+ + + | Problem | FB eye | T15.90XA | | | Active | | +---------+ + + +--------+ + + | Problem | Allergy, | 995.3 | | | Active | 091132632 | | | General | | | | | | +---------+ + + +--------+ + + | Problem | Screening | Z13.89 | | | Active | 416681224 | | | for | | | | | | | | alcoholism | | | | | | +---------+ + + +--------+ + + | Problem | ROM (right | H66.91 | | | Active | 55747484 | | | otitis | | | [...] | 722.0 | | | Active | 80496185 | | | DISC | | | [...] | 070.70 | | | Active | 88704334 | | | C without | | [...] | 782.0 | | | Active | 701841279 | | | e of skin | | | | | | | | sensation | | | | | | +---------+ + + +--------+ + + | Problem | Arm pain | 729.5 | | | Active | 87693506 | +---------+ + + +--------+ + + | Problem | JOINT | 719.41 | | | Active | 296053633 | | | PAIN-SHLDE | | | | | | | | R | | | | | | +---------+ + + +--------+ + + | Problem | BIPOLAR | 296.80 | | | Active | 91946171 | | | DISORDER | | | [...] low doses | | | | of [place] 5 325 q.6 to 8 | | [...] | Surgical History | laparoscopy x6 | 0696-7721 | + + + + | Surgical History | gall bladder | 2005 | + + + + | Surgical History | appendectomy | 1991 | + + + + | Surgical History | Abdominal hysterectomy, | 2008 | | | with BSO | | + + + + | Surgical History | shoulder surgery x2 | 0948-9907 | + + + + | Surgical [...]
[2017-01-24] MEDS ORDERED: METHYLPREDNISOLO4 M1 PO (12:54)
[2017-01-24] MEDS ORDERED: KETOROLAC TROME10 MG PO (12:54)
== END 2017-01-23 10:06 | disposition home or self-care (01) ==
LOC: ED 08:13
DX: F17.200 Nicotine dependence, unspecified, uncomplicated (principal); S30.0XXA Contusion of lower back and pelvis, initial encounter; Z90.49 Acquired absence of other specified parts of digestive tract; Z90.710 Acquired absence of both cervix and uterus; Z98.890 Other specified postprocedural states; Z88.5 Allergy status to narcotic agent; Z88.1 Allergy status to other antibiotic agents; Z88.8 Allergy status to other drugs, medicaments and biological substances; Z79.891 Long term (current) use of opiate analgesic; Z79.899 Other long term (current) drug therapy; W01.198A Fall on same level from slipping, tripping and stumbling with subsequent striking against other object, initial encounter
CPT/HCPCS: 72100; 81001; 99283

== ENCOUNTER 2017-01-24 11:23 | Emergency (ER) | payer OTHER ==
[~2017-01-24] VITALS: Ht 165.1 cm; Wt 83.5 kg
[~2017-01-24 11:23] MED LIST changes: +CYMBALTA20 MG PO; +SUBOXONE 8 MG-1 EAC1 SL
[2017-01-24] MEDS ORDERED: KETOROLAC TROME10 MG PO (12:54)
[2017-01-24] MEDS ORDERED: METHYLPREDNISOLO4 M1 PO (12:54)
== END 2017-01-24 13:01 | disposition home or self-care (01) ==
LOC: ED 11:23
DX: S20.211A Contusion of right front wall of thorax, initial encounter (principal); F17.200 Nicotine dependence, unspecified, uncomplicated; Z90.49 Acquired absence of other specified parts of digestive tract; Z90.710 Acquired absence of both cervix and uterus; Z88.5 Allergy status to narcotic agent; Z88.1 Allergy status to other antibiotic agents; Z88.8 Allergy status to other drugs, medicaments and biological substances; W19.XXXA Unspecified fall, initial encounter
CPT/HCPCS: 71101; 96372; 99283; J1885

== ENCOUNTER 2017-03-01 10:41 | Emergency (ER) | payer OTHER ==
[~2017-03-01] VITALS: Ht 165.1 cm; Wt 81.7 kg
--- OUTSIDE RECORDS SUMMARY | ~2017-03-01 | XMS | Clinical Summary ---
Demographics + + + | Address | [address] | | | [place] [address] | + + + | Home Phone | | + + + | Preferred Language | Unknown | + + + | Marital Status | Single | + + + | Mandaeism Affiliation | CHR | + + + | Race | White | + + + | Ethnic Group | Not or | + + + Author + + + | Author | [facility] | + + + | Organization | [facility] | + + + | Address | Unknown | + + + | Phone | Unavailable | + + + Support +------+ + + + + | Name | Relationship | Address | Phone | +------+ + + + + ECON | [address] | | [place] [address] | +------+ + + + + Care Team Providers + +------+ + | Care Delivery Driver/Customer Service Name | Role | Phone | + +------+ + | No Pcp Per Patient | PP | Unavailable | + +------+ + Source Comments ANDREIA is fully live on both [facility] and [facility] Allergies + + + + + + | Active Allergy | Reactions | Severity | Noted | Comments | | | | | Date | | + + + + + + | Amoxicillin | | | 07/24/19 | | | | | | 08 | | + + + + + + | Propoxyphene | | | 07/24/19 | | | N-Acetaminophen | | | 08 | | + + + + + + | Droperidol | | | 05/01/18 | VOMITING | | | | | 94 | | + + + + + + Current Medications + + +-------+---------+------+------+-------+ | Prescription | Sig. | Disp. | Refills | Star | End | Statu | | | | | | t | Date | s | | | | | | Date | | | + + +-------+---------+------+------+-------+ | VICODIN ORAL | None Entered | | | | | Activ | | | | | | | | e | + + +-------+---------+------+------+-------+ | | take 1-2 tablets by | 24 | 0 | 06/0 | | Activ | | hydrocodone-acetamin | oral route every 4-6 | | | 7/20 | | e | | ophen (VICODIN) | hours as needed for | | | 08 | | | | 5-500 mg Oral Tablet | pain | | | | | | + + +-------+---------+------+------+-------+ | ibuprofen 800 mg | take 1 tablet (800 | 30 | 0 | 06/0 | | Activ | | Oral Tablet | mg) by oral route 3 | | | 7/20 | | e | | | times per day with | | | 08 | | | | | food | | | | | | + + +-------+---------+------+------+-------+ Active Problems Not on file Social History + +-------+ +--------+------+ | Tobacco Use | Types | Packs/Day | Years | Date | | | | | Used | | + +-------+ +--------+------+ | Current Every Day | | | | | | Smoker | | | | | + +-------+ +--------+------+ + + +---------+ + | Alcohol Use [...] + + + | Blood Pressure | 101/69 | 07/24/2007 3:56 PM PDT | + + + + | Pulse | 63 | 07/24/2007 3:56 PM PDT | + + + + | Temperature | 37.2 C (99 F) | 07/24/2007 12:49 PM PDT | + + + + | Respiratory Rate | 16 | 07/24/2007 3:56 PM PDT | + + + + | Oxygen Saturation | 99% | 07/24/2007 3:56 PM PDT | + + + + | Inhaled Oxygen | - | - | | Concentration | | | + + + + | Weight | 85 kg (187 lb 6.3 | 07/24/2007 12:49 PM PDT | | | oz) | | + + + + | Height | - | - | + + + + | Body Mass Index | - | - | + + + + Plan of Treatment + + + + + | Health Maintenance | Due Date | Last Done | Comments | + + + + + | INFLUENZA VACCINE | | | | | (FLU SHOT) | 7 | | | + + + + + Results Not on filefrom Last 3 Months"
--- OUTSIDE RECORDS SUMMARY | ~2017-03-01 | XMS | Clinical Summary ---
Demographics + + + | Address | [address] | | | [place] [address] | + + + | Home Phone | | + + + | Preferred Language | Unknown | + + + | Marital Status | Single | + + + | Shinto Affiliation | CHR | + + + [...] [address] | | [place] [address] | +------+ + + + + Care Team Providers + +------+ + | Care Product Developer Name | Role | Phone | + +------+ + | No Pcp Per Patient | PP | Unavailable | + +------+ + Source Comments ANDREIA is fully [facility] both [facility] and [facility] Allergies + + + + + [...]
[~2017-03-01 10:41] MED LIST changes: +KETOROLAC TROME10 MG PO; +METHYLPREDNISOLO4 M1 PO
[2017-03-01] MEDS ORDERED: ONDANSETRON ODT8 MG PO (14:51)
[2017-03-01] MEDS ORDERED: PROMETHAZINE HC25 M1 PO (14:51)
== END 2017-03-01 15:25 | disposition home or self-care (01) ==
LOC: ED 10:41
DX: A04.72 Enterocolitis due to Clostridium difficile, not specified as recurrent (principal); F31.9 Bipolar disorder, unspecified; F17.200 Nicotine dependence, unspecified, uncomplicated; Z90.49 Acquired absence of other specified parts of digestive tract; Z90.710 Acquired absence of both cervix and uterus; Z98.890 Other specified postprocedural states; Z88.0 Allergy status to penicillin; Z88.5 Allergy status to narcotic agent; Z88.8 Allergy status to other drugs, medicaments and biological substances; Z79.899 Other long term (current) drug therapy
CPT/HCPCS: 36415; 80053; 81001; 83690; 85025; 96374; 96375; 99284; J1170; J2405; J7030

== ENCOUNTER 2017-08-14 13:04 | Emergency (ER) | payer OTHER ==
[~2017-08-14] VITALS: Ht 165.1 cm; Wt 81.7 kg
[~2017-08-14 13:04] MED LIST changes: +ONDANSETRON ODT8 MG PO; +PROMETHAZINE HC25 M1 PO
[2017-08-14] MEDS ORDERED: LAMICTAL200 MG PO (13:44)
== END 2017-08-14 15:07 | disposition home or self-care (01) ==
LOC: ED 13:04
DX: G43.909 Migraine, unspecified, not intractable, without status migrainosus (principal); R20.2 Paresthesia of skin; F31.9 Bipolar disorder, unspecified; F17.200 Nicotine dependence, unspecified, uncomplicated; Z88.5 Allergy status to narcotic agent; Z88.0 Allergy status to penicillin; Z88.8 Allergy status to other drugs, medicaments and biological substances; Z79.899 Other long term (current) drug therapy
CPT/HCPCS: 80053; 85025; 96374; 96375; 99283; J1885; J2550; J7030

== ENCOUNTER 2017-11-07 10:35 | Emergency (ER) | payer OTHER ==
[~2017-11-07] VITALS: Ht 165.1 cm; Wt 79.4 kg
--- OUTSIDE RECORDS SUMMARY | ~2017-11-07 | XMS | Clinical Summary ---
Demographics + + + | Address | [address] | | | [place] [address] | + + + | Home Phone | | + + + | Preferred Language | Unknown | + + + | Marital Status | | + + + | Yazidism Affiliation | 1075 | + + + | Race | Unknown | + + + | Ethnic Group | Unknown | + + + Author + + + | Author | [facility] | | | and [place] | + + + | Organization | [facility] | | | and [place] | + + + | Address | Unknown | + + + | Phone | Unavailable | + + + Support + + + + + | Name | Relationship | Address | Phone | + + + + + | Angelica Mina | ECON | [address] | | | A | | [place] | | | | | [address] | | + + + + + Care Team Providers + +------+ + | Care Leisure Studies Professor Name | Role | Phone | + +------+ + | Yfn Martinez MD | PP | | + +------+ + Allergies + + + + + + | Active Allergy | Reactions | Severity | Noted | Comments | | | | | Date | | + + + + + + | Amoxicillin | Nausea And Vomiting, | Medium | 07/22/19 | | | | Rash | | 13 | | + + + + + + | Codeine | Itching | | 01/16/20 | | | | | | 17 | | + + + + + + | Droperidol | Nausea And Vomiting, | Medium | 07/22/19 | | | | Rash | | 13 | | + + + + + + | Morphine | Itching, Other (See | Medium | 03/30/19 | Stomach pain | | | Comments) | | 14 | | + + + + + + | Propoxyphene | Other (See Comments) | | 01/16/20 | Upset Stomach | | | | | 17 | | + + + + + + | Tramadol | Other (See Comments) | High | 07/22/19 | Seizure | | | | | 13 | | + + + + + + | Uncoded | Nausea And Vomiting | Low | 07/22/19 | | | Nonscreenable | | | 13 | | | Allergen | | | | | + + + + + + Current Medications + + +-------+---------+------+------+-------+ | Prescription | Sig. | Disp. | Refills | Star | End | Statu | | | | | | t | Date | s | | | | | | Date | | | + + +-------+---------+------+------+-------+ | ibuprofen (ADVIL, | Take 200 mg by mouth | | | | | Activ | | MOTRIN) 200 mg | every 6 hours as | | | | | e | | tablet | needed for Pain. | | | | | | + + +-------+---------+------+------+-------+ | SUBOXONE 8-2 MG SL | | | 0 | 02/0 | | Activ | | film | | | | 9/20 | | e | | | | | | 18 | | | + + +-------+---------+------+------+-------+ Active Problems + + + | Problem | Noted Date | + + + | Acid reflux | | + + + | Crohn's disease of intestine | | + + + | Hx of seizure disorder | | + + + Family History + + +------+ + | Medical History | Relation | Name | Comments | + + +------+ + | High blood pressure | Brother | | | + + +------+ + | High cholesterol | Brother | | | + + +------+ + | No Known Problems | Daughter | | | + + +------+ + | Alcohol abuse | Father | | | + + +------+ + | Arthritis | Father | | | + + +------+ + | Dementia | Father | | | + + +------+ + | High blood pressure | Father | | | + + +------+ + | High cholesterol | Father | | | + + +------+ + | Other (see comment) | Father | | back or neck problems | + + +------+ + | Seizures | Father | | | + + +------+ + | Breast cancer | Maternal | | | | | Aunt | | | + + +------+ + | Seizures | Maternal | | | | | Aunt | | | + + +------+ + | No Known Problems | Maternal | | | | | Grandfath | | | | | er | | | + + +------+ + | Liver cancer | Maternal | | | | | Grandmoth | | | | | er | | | + + +------+ + | Lung cancer | Maternal | | | | | Grandmoth | | | | | er | | | + + +------+ + | Arthritis | Mother | | | + + +------+ + | Breast cancer | Mother | | | + + +------+ + | Depression | Mother | | | + + +------+ + | Psychiatric Illness | Mother | | | + + +------+ + | Alcohol abuse | Other | | | + + +------+ + | Gout | Other | | | + + +------+ + | Stroke | Other | | maternal great uncle | + + +------+ + | Heart disease | Paternal | | | | | Aunt | | | + + +------+ + | Diabetes | Paternal | | | | | Aunt | | | + + +------+ + | Diabetes | Paternal | | | | | Grandfath | | | | | er | | | + + +------+ + | Heart attack | Paternal | | | | | Grandfath | | | | | er | | | + + +------+ + | Heart disease | Paternal | | | | | Grandfath | | | | | er | | | + + +------+ + | Alzheimer's disease | Paternal | | | | | Grandmoth | | | | | er | | | + + +------+ + | Dementia | Paternal | | | | | Grandmoth | | | | | er | | | + + +------+ + | Autism | Son | | Aspergers | + + +------+ + + +------+ + + | Relation | Name | Status | Comments | + +------+ + + | Brother | | Alive | | + +------+ + + | Daughter | | Alive | | + +------+ + + | Father | | Alive | | + +------+ + + | Maternal Aunt | | | | + +------+ + + | Maternal Aunt | | | | + +------+ + + | Maternal Grandfather | | | | + +------+ + + | Maternal Grandmother | | | Lung and Liver Cancer | | | | (Age | | | | | 63) | | + +------+ + + | Mother | | Alive | | + +------+ + + | Other | | | | + +------+ + + | Paternal Aunt | | | | + +------+ + + | Paternal Aunt | | | | + +------+ + + | Paternal Grandfather | | | Heart Attack | | | | (Age | | | | | 55) | | + +------+ + + | Paternal Grandmother | | | Alzheimers | | | | (Age | | | | | 73) | | + +------+ + + | Son | | Alive | | + +------+ + + Social History + + + +--------+------+ | Tobacco Use | Types | Packs/Day | Years | Date | | | | | Used | | + + + +--------+------+ | Current Every Day | Cigarettes | 0.5 | 20 | | | Smoker | | | | | + + + +--------+------+ + +---+---+---+ | Smokeless Tobacco: | | | | | Never Used | | | | + +---+---+---+ + + +---------+ + | Alcohol Use | Drinks/We | oz/Week | Comments | | | ek | | | + + +---------+ + | No | | | | + + +---------+ + + + + | Sex Assigned at | Date Recorded | | | | + + + | Not on file | | + + + Last Filed Vital Signs + + + + | Vital Sign | Reading | Time Taken | + + + + | Blood Pressure | 101/52 | 05/20/20171613 PDT | + + + + | Pulse | 63 | 05/20/20171613 PDT | + + + + | Temperature | 37.3 C (99.1 F) | 09/21/20149 PDT | + + + + | Respiratory Rate | 16 | 05/20/20171613 PDT | + + + + | Oxygen Saturation | 99% | 09/21/20149 PDT | + + + + | Inhaled Oxygen | - | - | | Concentration | | | + + + + | Weight | 77.1 kg (170 lb) | 05/20/2017 1614 PDT | + + + + | Height | 165.1 cm (5' 5") | 05/20/20171613 PDT | + + + + | Body Mass Index | 28.29 | 05/20/20171613 PDT | + + + + Plan of Treatment + + + + + | Health Maintenance | Due Date | Last Done | Comments | + + + + + | Vaccine: | | | | | Dtap/Tdap/Td (1 - | 8 | | | | Tdap) | | | | + + + + + | Vaccine: | | | | | Pneumococcal 19-64 | 8 | | | | (PPSV23 only) Medium | | | | | Risk (1 of 1 - | | | | | PPSV23) | | | | + + + + + | Vaccine: Influenza | | | | | (#1) | 8 | | | + + + + + Results Not on filefrom Last 3 Months Insurance + +--------+ +--------+ +---------+ | Payer | Benefi | Subscriber | Type | Phone | Address | | | t Plan | ID | | | | | | / | | | | | | | Group | | | | | + +--------+ +--------+ +---------+ | [employer] | MODA | [id number] | Medica | [phone] | | | MEDICAID HMO | HEALTH | | id | 9821 | | | | MDCD | | | | | | | [place] | | | | | + +--------+ +--------+ +---------+ + +--------+ +--------+ + + | Guarantor Name | Accoun | Relation to | Date | Phone | Billing Address | | | t Type | Patient | of | | | | | | | | | | + +--------+ +--------+ + + | BRAXTON MINA | Person | Self | [birth year] | Home: | [address] | | | al/Fam | | 1981 | [phone] | [place] [address] | | | [place] | | | [phone] | | + +--------+ +--------+ + +
--- OUTSIDE RECORDS SUMMARY | ~2017-11-07 | XMS | Clinical Summary ---
Demographics + + + | Address | [address] | | | [place] [address] | + + + | Home Phone | | + + + | Preferred Language | Unknown | + + + | Marital Status | | + + + | Confucianist Affiliation | Unknown | + + + | Race | Unknown | + + + | Ethnic Group | Unknown | + + + Author + + + | Author | [facility] | + + + | Organization | [facility] | + + + | Address | Unknown | + + + | Phone | Unavailable | + + + Support + + +---------+ + | Name | Relationship | Address | Phone | + + +---------+ + | Debo Mina | ECON | Unknown | | + + +---------+ + | Kingston Mina | ECON | Unknown | | + + +---------+ + Care Team Providers + +------+ + | Care Body Sander Name | Role | Phone | + +------+ + | Yfn Martinez MD | PP | | + +------+ + Allergies + + + + + + | Active Allergy | Reactions | Severity | Noted | Comments | | | | | Date | | + + + + + + | Amoxicillin | Rash | Medium | 20 | | | | | | 13 | | + + + + + + | Propoxyphene | Nausea and Vomiting | Low | 07/22/19 | | | N-Acetaminophen | | | 13 | | + + + + + + | Droperidol | Rash | Medium | 07/22/19 | | | | | | 13 | | + + + + + + | Morphine | Nausea and Vomiting | Low | 12/03/19 | | | | | | 17 | | + + + + + + | Tramadol | Seizure | High | 07/22/19 | | | | | | 13 | | + + + + + + Current Medications + + +--------+---------+------+------+-------+ | Prescription | Sig. | Disp. | Refills | Star | End | Statu | | | | | | t | Date | s | | | | | | Date | | | + + +--------+---------+------+------+-------+ | estradiol | Take 1 mg by mouth | | | | | Activ | | (ESTRACE) 1 MG | daily. | | | | | e | | tablet | | | | | | | + + +--------+---------+------+------+-------+ | DULoxetine | Take 20 mg by mouth | | | | | Activ | | (CYMBALTA) [address] | daily. | | | | | e | | capsule | | | | | | | + + +--------+---------+------+------+-------+ | Multiple | Take by mouth. | | | | | Activ | | Vitamins-Minerals | | | | | | e | | (MULTIVITAMIN ADULT | | | | | | | | PO) | | | | | | | + + +--------+---------+------+------+-------+ | ibuprofen (MOTRIN) | Take 800 mg by mouth | | | | | Activ | | 800 MG tablet | every 6 (six) hours | | | | | e | | | as needed for Pain. | | | | | | + + +--------+---------+------+------+-------+ | isosorbide | Take 1 tablet by | 30 | 11 | 11/16 | 11/16 | Activ | | mononitrate (IMDUR) | mouth daily. | tablet | | 09/04 | 09/04 | e | | 30 MG 24 hr | | | | 17 | 18 | | | tabletIndications: | | | | | | | | Precordial pain | | | | | | | + + +--------+---------+------+------+-------+ | Buprenorphine | Place under the | | | | | Activ | | HCl-Naloxone HCl | tongue. | | | | | e | | (SUBOXONE | | | | | | | | SL)Indications: 2 | | | | | | | | 1/2-3 strips a day | | | | | | | + + +--------+---------+------+------+-------+ Active Problems +---------+ + | Problem | Noted Date | +---------+ + | Nausea | 05/05/2017 | +---------+ + + + | Overview: Added automatically from request for surgery [id number] | + + + + + | Pharyngoesophageal dysphagia | 05/05/2017 | + + + + + | Overview: Added automatically from request for surgery [id number] | + + + + + | Crohn's disease with complication (HCC) | 05/05/2017 | + + + + + | Overview: Added automatically from request for surgery [id number] | + + + + + | Precordial pain | 04/12/2015 | + + + | Heart palpitations | 04/12/2015 | + + + + + | Last Assessment & Plan: 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 "Heart racing" associated with the | | one episode of Atrial tachycardia, symptoms of chest discomfort, | | SOB, dizziness not associated with ectopy. | + + + + + | CHD (congenital heart disease) | 04/12/2015 | + + + + + | Last Assessment & Plan: CHD; Bicuspid Aortic valve with mild | | AI. 34yo WF, complaining of chest discomfort, | | dizziness, her heart racing. This is been going on for over a | | year, she is concerned about her history of bicuspid aortic valve | | and a leaky heart valve. 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 She has been free from drug use for a few years, | | and a process of smoking cessation, using a nicotine patch. Her | | symptoms are somewhat random in occurrence but also occur with | | activity, he racing heart is quite random, occurring at various | | times that day, and she is not sure what aggravates this. But | | that palpitations and racing heart or usually separate from a | | chest discomfort. She's not had any syncope. Her bicuspid valve | | was apparently an incidental finding. She has no history of | | coronary artery disease, myocardial infarction, congestive heart | | failure, rheumatic heart disease. She admits that she is | | somewhat anxious and by nature, also has a history of fractured | | left shoulder and left ribs, total left shoulder replacement. | | Reviewing her data, she had a stress echocardiogram done in 2013, | | at that time stress echo was considered a negative study, low | | risk for coronary disease, there was an incidental finding of | | bicuspid aortic valve with mild aortic insufficiency. I | | reassured her that results of a stress echo were actually | | favorable. 12-Day Cardiac telemetry benign. CT coronary calcium | | score pending.Hx Pacemaker/ICD: noLast Cath: naLast Echo: naLast | | Stress Test, 07/14/2013: 10:26min Jose, no chest pain, ECG (-) | | for ischemia, LV augmented appropriately, no segmental WMA, | | incidental finding of bicuspid Aortic valve with mild AI, the | | Aortic root and Ascending Aorta not dilated. Low risk.ECG, | | 04/12/2015: NSR, 98bpm. | + + +---------+ + | Anxiety | 04/12/2015 | +---------+ + + + | Last Assessment & Plan: Anxiety disorder, managed by PCP. | + + Family History + + +------+ + | Medical History | Relation | Name | Comments | + + +------+ + | High cholesterol | Father | | | + + +------+ + | Hypertension | Father | | | + + +------+ + | Stroke | Father | | | + + +------+ + | COPD | Mother | | | + + +------+ + | Cancer | Mother | | | + + +------+ + + +------+--------+ + | Relation | Name | Status | Comments | + +------+--------+ + | Father | | Alive | CAD,HTN,Hyperlipidemia | + +------+--------+ + | Mother | | Alive | heart | | | | | disease,depression,Lupus,Osteoarthritis, | | | | | breast cancer | + +------+--------+ + Social History + + + +--------+------+ [...] | | | + +---+---+---+ + + | Tobacco Cessation: Ready to Quit: Yes; Counseling Given: Yes | | Comments: working on quitting w/ patches | + + + + +---------+ + | Alcohol Use | Drinks/We | oz/Week | Comments | | | ek | | | + + +---------+ + | No | 0 | 0.0 | rarely 3 x yearly | | | Standard | | | | | drinks or | | | | | | | | | | equivalen | | | | | t | | | + + +---------+ + + + + | Sex Assigned at | Date Recorded | | | | + + + | Not on file | | + + + Last Filed Vital Signs + + + + | Vital Sign | Reading | Time Taken | + + + + | Blood Pressure | 94/64 | 04/27/2017 2:17 PM PDT | + + + + | Pulse | 82 | 04/27/2017 2:17 PM PDT | + + + + | Temperature | 36.6 C (97.9 F) | 07/21/2012 9:50 AM PDT | + + + + | Respiratory Rate | 20 | 12/02/2016 12:55 PM PDT | + + + + | Oxygen Saturation | 98% | 12/02/2016 12:55 PM PDT | + + + + | Inhaled Oxygen | - | - | | Concentration | | | + + + + | Weight | 79.5 kg (175 lb 3.2 | 04/27/2017 2:17 PM PDT | | | oz) | | + + + + | Height | 165.1 cm (5' 5") | 04/27/2017 2:17 PM PDT | + + + + | Body Mass Index | 29.15 | 04/27/2017 2:17 PM PDT | + + + + Plan [...] | + + + + + | Cervical Cancer | | | | | Screening (Pap) | 9 | | | + + + + + | Vaccine: Influenza | | | | | (#1) | 8 | | | + + + + + Results Not on filefrom Last 3 Months Insurance + +--------+ +------+-------+ + | Payer | Benefi | Subscriber | Type | Phone | Address | | | t Plan | ID | | | | | | / | | | | | | | Group | | | | | + +--------+ +------+-------+ + | MEDICAID | [employer] | [id number] | | | [address] | | | [place] | | | | [place] | | | [place] | | | | [phone] | | | CATERING ASSOCIATE | | | | | + +--------+ +------+-------+ + + +--------+ +--------+ + + | Guarantor Name | Accoun | Relation to | Date | Phone | Billing Address | | | t Type | Patient | of | | | | | | | | | | + +--------+ +--------+ + + | BRAXTON MINA | Person | Self | [birth year] | Home: | [address] | | | al/Fam | | 1980 | [phone] | [place] | | | [place] | | | [phone] | [phone] | + +--------+ +--------+ + +
--- OUTSIDE RECORDS SUMMARY | ~2017-11-07 | XMS | Clinical Summary ---
Demographics + + + | Address | [address] | | | [place] [address] | + + + | Home Phone | | + + + | Preferred Language | Unknown | + + + | Marital Status | Single | + + + | Catholic Affiliation | CHR | + + + [...] | + + + + + | [place] | ECON | [address] | | | | | [place] [address] | | + + + + + Care Team Providers + +------+ + | Care Utility Appraiser Name | Role | Phone | + +------+ + | No Pcp Per Patient | PP | Unavailable | + +------+ + Source Comments ANDREIA is fully live on both [facility] Amb[facility] and [facility] InPatient.[facility] Allergies + + + + + [...] | | | | (FLU SHOT) | 8 | | | + + + + + Results Not on filefrom Last 3 Months"
--- OUTSIDE RECORDS SUMMARY | ~2017-11-07 | XMS | Clinical Summary ---
Demographics + + + | Address | [address] | | | [place] [address] | + + + | Home Phone | | + + + | Preferred Language | Unknown | + + + | Marital Status | | + + + | Religion Affiliation | Unknown | + + + | Race | Unknown | + + + | Ethnic Group | Unknown | + + + Author + + + | Author | [email or web address] | + + + | Organization | [facility] | + + + | Address [...] Team Providers + +------+ + | Care Head Usher Name | Role | Phone | + [...] Overview: Added automatically from request for surgery [id number] | + + + + + | Pharyngoesophageal dysphagia | 05/05/2017 | + + + + + | Overview: Added automatically from request for surgery [id number] | + + + + + | Crohn's disease with complication (HCC) | 05/05/2017 | + + + + + | Overview: Added automatically from request for surgery [id number] | + + + + + | Precordial pain | 04/12/2015 | + + + | Heart palpitations | 04/12/2015 | + + + + + | Last Assessment & Plan: 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
--- OUTSIDE RECORDS SUMMARY | ~2017-11-07 | XMS | Clinical Summary ---
Demographics + + + | Address | [address] | | | [place] [address] | + + + | Home Phone | | + + + | Preferred Language | Unknown | + + + | Marital Status | Single | + + + | Islam Affiliation | CHR | + + + [...] | | | | | [place] [address] | | + + + + + Care Team Providers + +------+ + | Care Quotation Clerk Name | Role | Phone | + +------+ + | No Pcp Per Patient | PP | Unavailable | + +------+ + Source Comments ANDREIA is fully live on both [facility] Ambulatory and [facility] InPatient.[facility] Allergies + + + + + [...]
--- OUTSIDE RECORDS SUMMARY | ~2017-11-07 | XMS | Clinical Summary ---
Demographics + + + | Address | [address] | | | [place] [address] | + + + | Home Phone | | + + + | Preferred Language | Unknown | + + + | Marital Status | | + + + | Catholic Affiliation | 1075 | + + + | Race | Unknown | + + + | Ethnic Group | Unknown | + + + Author + + + | Author | [facility] | | | and [facility] | + + + | Organization | [facility] | | | and [place] | + [...] [place] | | | | | [address] | | + + + + + Care Team Providers + +------+ + | Care Office Asst Name | Role | Phone | + [...] | [employer] | MODA | [id number] | Medica | [phone] | | | MEDICAID HMO | HEALTH [...] | 1981 | [phone] | [place] [address] | | | [place] | | | [phone] | | + +--------+ +--------+ + +
[~2017-11-07 10:35] MED LIST changes: +LAMICTAL200 MG PO
[2017-11-07] MEDS ORDERED: BENTYL10 MG/1 ML IM (10:58)
[2017-11-07] MEDS ORDERED: KETOROLAC TROME10 MG PO (13:54)
[2017-11-07] MEDS ORDERED: ZOFRAN ODT4 MG PO (13:54)
== END 2017-11-07 14:15 | disposition home or self-care (01) ==
LOC: ED 10:35
DX: N13.2 Hydronephrosis with renal and ureteral calculous obstruction (principal); G40.909 Epilepsy, unspecified, not intractable, without status epilepticus; F31.9 Bipolar disorder, unspecified; Z87.891 Personal history of nicotine dependence; Z88.5 Allergy status to narcotic agent; Z88.0 Allergy status to penicillin; Z88.8 Allergy status to other drugs, medicaments and biological substances; Z79.899 Other long term (current) drug therapy
CPT/HCPCS: 74177; 80053; 81001; 83690; 85025; 96361; 96374; 96375; 99284; J1885; J2405; J7030; Q9967